=== PATIENT | male | born 1960 | race Caucasian/White ===

== ENCOUNTER → 2020-01-31 | Outpatient (CLI) | payer SELFPAY ==
--- NOTE | 2020-01-31 08:24 | CT ---
EXAMINATION TYPE: CT brain wo con DATE OF EXAM: 01/31/2020 COMPARISON: None HISTORY: 59-year-old male R51 Headache TECHNIQUE: Examination was done in axial plane without intravenous contrast. Coronal and sagittal r econstructions performed. CT DLP: 1070.6 mGycm Automated exposure control for dose reduction was used. FINDINGS: There is no evidence of acute intracranial hemorrhage, acute ischemic changes, mass, mass-effect, or extra-axial fluid collection. There is no effacement of cerebral sulci or basal subarachnoid cister ns. There is no hydrocephalus. There is no midline shift. Genao-white matter distinction is preserv ed. Moderate mucosal thickening bilateral maxillary sinuses and posterior left ethmoid air cells. Leftwar d nasal septal deviation. Mastoid air cell pneumatized. Orbits and globes are intact. IMPRESSION: Moderate chronic maxillary and left ethmoid sinus disease. No acute intracranial abnormality seen.
== END | disposition home or self-care (01) ==
LOC: RADCTMAIN 06:26
PROVIDERS: ATTEND Internal Medicine
DX: R51 Headache (principal)
CPT/HCPCS: 70450

== ENCOUNTER → 2021-07-15 | Outpatient (CLI) | payer SELFPAY ==
[2021-07-15 18:45] LABS: Appearance,Urine Clear (Clear); Bacteria,Urine None Seen /HPF (None Seen); Bilirubin,Urine Negative (Negative); Blood,Urine Negative (Negative); Color,Urine Yellow (Yellow); Ketones,Urine Trace mg/dL (Negative); Leukocyte Esterase,Urine Trace (Negative); Nitrite,Urine Negative (Negative); Protein,Urine Negative (Negative); RBC,Urine 0-2 /HPF (0-2); Specific Gravity,Urine 1.022 (1.001-1.030); Urobilinogen,Urine 0.2 (0.2,1.0); WBC,Urine 0-5 /HPF (0-5)
== END | disposition home or self-care (01) ==
LOC: LABWHC1 08:48
PROVIDERS: ATTEND Internal Medicine
DX: M79.10 Myalgia, unspecified site (principal); R25.2 Cramp and spasm
CPT/HCPCS: 36415; 81001; 85652; 86140

== ENCOUNTER 2022-06-29 06:45 | Day surgery (SDC) | payer OTHER ==
[2022-06-24 09:44] VITALS: BMI 27.1
[~2022-06-29 06:45] MED LIST: LACTATED RINGERS 1,000 ML IV SCH
[2022-06-29 07:09] VITALS: RESP 16; TEMP 97.7
[2022-06-29 07:15] LABS: Glucose,Whole Blood 95 mg/dL (70-110)
[2022-06-29] MEDS ORDERED: MIDAZOLAM 2 MG/2 ML VIAL IV ONE (07:22)
[2022-06-29] MEDS ORDERED: PROPOFOL 10 MG/ML 20 ML VIAL IV ONE (07:40)
--- NOTE | 2022-06-29 07:59 | P.PCN ---
Date of Procedure: 06/29/22 Procedure(s) Performed: BRIEF HISTORY: Patient is a 61-year-old pleasant and scheduled for an elective colonoscopy as a part of screening for colorectal neoplasia PROCEDURE PERFORMED: Colonoscopy. PREOPERATIVE DIAGNOSIS: Screening for colon cancer. IV sedation per Anesthesia. PROCEDURE: After informed consent was obtained, the patient, was brought into the endoscopy unit. IV sedation was administered by Anesthesia under continuous monitoring. Digital rectal examination was normal. Initially the Olympus CF-160 flexible video colonoscope was then inserted in the rectum, gradually advanced into the cecum without any difficulty. Careful examination was performed as the scope was gradually being withdrawn. Ileocecal valve and the appendiceal orifice were visualized and appeared normal. Prep was excellent. Mucosa of the cecum, ascending colon, transverse colon, descending colon, sigmoid colon, and rectum appeared normal. Scattered sigmoid diverticulosis Retroflexion was performed in the rectum and no lesions were seen. The patient tolerated the procedure well. IMPRESSION: Normal-appearing colon from rectum to cecum with no evidence of colorectal neoplasia . RECOMMENDATIONS: Findings of this examination were discussed with the patient as well as his family. He was advised to have a repeat screening colonoscopy in 10 years..
[2022-06-29 08:17] VITALS: BP 122/84; PULSE 98
== END 2022-06-29 08:38 | disposition home or self-care (01) ==
LOC: ORWHC2ENDO 06:45
PROVIDERS: ATTEND Internal Medicine Gastroenterology
DX: Z12.11 Encounter for screening for malignant neoplasm of colon (principal); K57.30 Diverticulosis of large intestine without perforation or abscess without bleeding; E11.9 Type 2 diabetes mellitus without complications; E78.5 Hyperlipidemia, unspecified; M35.3 Polymyalgia rheumatica; Z79.899 Other long term (current) drug therapy; Z79.84 Long term (current) use of oral hypoglycemic drugs
CPT/HCPCS: J2250; J2704; G0121

== ENCOUNTER → 2023-03-16 | Outpatient (CLI) | payer OTHER ==
--- NOTE | 2023-03-16 15:01 | XR ---
EXAMINATION TYPE: XR chest 2V DATE OF EXAM: 03/16/2023 COMPARISON: NONE HISTORY: Recent pneumonia. TECHNIQUE: Frontal and lateral views of the chest are obtained. FINDINGS: There is no focal air space opacity, pleural effusion, or pneumothorax seen. The cardiac silhouette size is within normal limits. The osseous structures are intact. IMPRESSION: No acute cardiopulmonary process.
== END | disposition home or self-care (01) ==
LOC: RADXRMAIN 14:39
PROVIDERS: ATTEND Family Medicine
DX: J18.9 Pneumonia, unspecified organism (principal)
CPT/HCPCS: 71046

== ENCOUNTER → 2023-06-14 | Outpatient (CLI) | payer OTHER ==
[2023-06-14 15:35] LABS: Basophils # (A) 0.04 X 10*3/uL (0.00-0.10); Basophils % (A) 0.5 %; Eosinophils # (A) 0.16 X 10*3/uL (0.04-0.35); Eosinophils % (A) 2.2 %; HCT 49.6 % (39.6-50.0); HGB 16.9 g/dL (13.0-17.0); Lymphocytes # (A) 0.89 X 10*3/uL (0.90-5.00); Lymphocytes % (A) 12.1 %; MCH 31.1 pg (27.0-32.0); MCHC 34.1 g/dL (32.0-37.0); MCV 91.3 FL (80.0-97.0); Mean Platelet Volume 9.4 FL (9.5-12.2); Monocytes # (A) 0.54 X 10*3/uL (0.20-1.00); Monocytes % (A) 7.3 %; NRBC Per 100 WBC 0 X 10*3/uL (0.00-0.01); Neutrophils # (A) 5.69 X 10*3/uL (1.80-7.70); Neutrophils % (A) 77.5 %; Platelet Count 188 X 10*3/uL (140-440); RBC 5.43 X 10*6/uL (4.40-5.60); RDW 13.1 % (11.5-14.5); WBC 7.35 X 10*3/uL (4.50-10.00)
[2023-06-14 15:55] LABS: Erythrocyte Sedimentation Rate 17 mm/Hr (0-20)
[2023-06-14 15:57] LABS: Calcium 9.6 mg/dL (8.7-10.3); Carbon Dioxide 26.5 mmol/L (21.6-31.8); Chloride 105 mmol/L (96-109); Chol/HDL Ratio 3.56 Ratio; Glucose 126 mg/dL (70-110); LDL Cholesterol,Calculated 130.8 mg/dL (0.0-131.0); Sodium 141 mmol/L (135-145)
[2023-06-14 15:58] LABS: ALT 23 U/L (10-49); AST 17 U/L (14-35)
[2023-06-14 21:23] LABS: Microalbumin Creatinine Ratio <6 mg/g Cr (0-30)
== END | disposition home or self-care (01) ==
LOC: LABWHC1 09:32
PROVIDERS: ATTEND Internal Medicine Rheumatology
DX: Z00.00 Encounter for general adult medical examination without abnormal findings (principal); M25.50 Pain in unspecified joint; E11.9 Type 2 diabetes mellitus without complications; E78.5 Hyperlipidemia, unspecified; Z79.01 Long term (current) use of anticoagulants
CPT/HCPCS: 36415; 80048; 80061; 82043; 82570; 83036; 84450; 84460; 85025; 85652; 86140

== ENCOUNTER → 2024-03-22 | Outpatient (CLI) | payer OTHER ==
--- NOTE | 2024-03-22 16:38 | US ---
EXAMINATION TYPE: US chest DATE OF EXAM: 03/22/2024 COMPARISON: NONE CLINICAL INDICATION: Male, 63 years old with history of Left lateral chest cyst R222; Lump left side. TECHNIQUE: Multiple grayscale and color Doppler ultrasound images of the left lateral chest in the p atient's region of palpable abnormality were obtained. FINDINGS/IMPRESSION: Solid well demarcated hypoechoic lesion seen within the left chest with interna l color flow measuring 4.4 x 2.0 x 3.4 cm. No fluid collection identified. This is indeterminant with a variety of etiologies including a lipoma. Further evaluation with CT chest IV contrast is recommen ded. [facility], , 03/22/2024 4:36 PM
== END | disposition home or self-care (01) ==
LOC: RADUSWWP 16:15
DX: R22.2 Localized swelling, mass and lump, trunk (principal)
CPT/HCPCS: 76604